=== PATIENT | male | born 1975 | race Caucasian/White ===

== ENCOUNTER 2023-09-07 00:38 | Emergency (ER) | payer OTHER, SELFPAY ==
[2023-09-07 00:46] VITALS: BP 141/106
--- NOTE | 2023-09-07 01:53 | ED.GENMED ---
History of Present Illness
General
Chief Complaint: Cough
Source: patient
Exam Limitations: none
Time Seen by Provider: 09/07/23 01:39
Travel History
Have you had any contact with someone who has COVID-19?: No
Do you have any symptoms of coronavirus? Fever > 100 degrees, chills, cough, shortness of breath, sore throat, loss of taste or smell, muscle aches, or headache?: Yes
Symptoms:: cough
History of Present Illness
History of Present Illness:
This is a 47 year old male that comes in with c/o cough. States that he started 2 days ago with a cough. state that he was also wheezing. States that he feels SOB with the coughing. Denies any fever, chills, chest pain, abd pain, nausea,
vomiting, diarrhea, headache, dizziness, urinary burning.
Past History
Past History
ED Past Medical History: Arrthythmia (Atrial fib); Negative IDDM
ED Past Surgical History: Cardiac (Cardiac ablation) and Urological (Vasectomy)
Social History
Tobacco: Smoker
Alcohol: Daily (Vodka 7-10 drinks)
Drug: None
Personal:
Living: with family
Employment: Employed
Family History
Family History: Other (Noncontributory)
Review of Systems
Review of Systems
All Other Systems: ROS reviewed and negative except as documented in HPI and ROS
Constitutional: Reports no symptoms; Denies fever or chills
EENT: Reports no symptoms
Respiratory: Reports cough and trouble breathing
Cardiac: Reports no symptoms; Denies chest pain
ABD/GI: Reports no symptoms; Denies abdominal pain, nausea, vomiting or diarrhea
: Reports no symptoms; Denies dysuria, frequency or urgency
Musculoskeletal: Reports no symptoms
Skin: Reports no symptoms
Neurological: Reports no symptoms; Denies dizzy or headache
Psychiatric: Reports no symptoms
Phy Exam
General Physical Exam
General Presentation: no apparent distress
General age: appears stated age
General Skin: warm and dry
General Habitus: normal
General Mental: alert
General Hydration: appears well hydrated
ENT Exam
ENT Exam: TM's normal, pharynx normal and neck supple
Eye Exam
Eye Exam: EOMI
Cardiovascular Exam
Cardiovascular Exam: regular rate/rhythm, no edema, no murmur and normal peripheral pulses
Pulmonary Exam
Pulmonary Exam: lungs clear, no respiratory distress, no rales, chest non tender, no crackles, no rhonchi, no wheezing and other (occasional dry cough noted)
Gastrointestinal Exam
Gastrointestinal Exam: normal bowel sounds, non tender, soft, no organomegaly, no pulsatile mass and non distended
Musculoskeletal Exam
Musculoskeletal Exam: full ROM and no edema
Skin Exam
Skin Exam: normal color, warm/dry, no rash and no petechia
Psychiatric Exam
Psychiatric Exam: normal mood/affect
Course
Orders/Labs/Results
Orders:
Orders
09/07/23 00:49
CR Chest - 2 Views Urgent
Comment:
Reason For Exam: productive cough, low grade fever
09/07/23 01:52
Ipratropium/Albuterol Sulfate [Duoneb] 3 ml INH R NOW ONE
Prednisone [Deltasone] 50 mg PO NOW STA
09/07/23 01:57
COVID-19 Antigen Urgent
Source: Nasal Swab
Vital Signs
Initial and Last Documented VS:
Initial Vital Signs
Temp Pulse Resp BP Pulse Ox
99.7 F 100 26 141/106 97
09/07/23 00:46 09/07/23 00:46 09/07/23 00:46 09/07/23 00:46 09/07/23 00:46
Last Documented Vital Signs
Temp Pulse Resp BP Pulse Ox
99.7 F 100 26 141/106 97
09/07/23 00:46 09/07/23 00:46 09/07/23 00:46 09/07/23 00:46 09/07/23 00:46
MDM/Problems Addressed
Differential Diagnosis Includes:
Bronchitis, PNA,
MDM/Problems Addressed:
This is a 47 year old male that comes in with c/o coughing. States that this started 2 days ago. states that he was wheezing.
Will give Duo neb and steroids. Chest x-ray.
Back into see patient. Patient states that he is feeling much better. Will give patient a prescription for an albuterol inhaler and steroid. Patient to follow up with the family doctor on Friday for recheck. Increase his water intake to 8-8oz
glasses daily. Return with increased SOB or any other concerns.
Chronic conditions affecting care:
NA
Acute Exacerbation and/or Progression of Chronic Illness:
NA
*Radiology
Radiology exam reviewed: radiology read reviewed (Chest-NO evidence of active cardiopulmonary disease. )
*Pulse Oximetry
Patient hypoxic: no
*EKG
Interpreted by ED Provider?: NA
Rate: EKG- N/A
*Security Software Engineer Interpretation
Rate: Security Software Engineer- N/A
*Critical Care Note
Total Time (30-74mins, 75-104mins- exclusive of procedures): Not Applicable
ED Attending Note
-
Portions of this chart may have been created with voice recognition software.� Occasional wrong word or��sound alike� substitutions may have occurred due to the inherent limitations of voice recognition software.
Discharge Plan
Departure
Patient Disposition: Home (Routine Discharge)
Date of Disposition: 09/07/23
Time of Disposition: 02:32
Patient with high blood pressure during this ER visit?: Yes
Condition: Good
Discharge Problem:
Cough in adult
Instructions: Cough, Adult (DC), BLOOD PRESSURE
Prescriptions:
New
prednisone 20 mg tablet
40 mg PO DAILY Qty: 8 0RF
albuterol sulfate 90 mcg/actuation HFA aerosol inhaler
2 puff inhalation Q4H PRN (Reason: shortness of breath or wheezing) Qty: 6.7 0RF
No Action
tramadol 50 MG tablet
50 mg PO Q6 PRN (Reason: pain) Qty: 14 0RF
ibuprofen 600 MG tablet
600 mg PO Q6H Qty: 30 0RF
Referrals:
Real Villanueva MD [Family Provider] - Follow up in 2-3 days
Activity Restrictions/Additional Instructions:
As discussed, your Chest x-ray was normal. This may be a viral syndrome. Please increase your water intake to 8-8oz glasses daily. You have had a prescription for a steroid and an albuterol inhaler sent to your Pharmacy. You have also been given
your first dose of steroid here. Please take this tomorrow night. Follow up with the family doctor for recheck. IF YOU HAVE INCREASED SHORTNESS OF BREATH, CHEST PAIN, OR YOU HAVE ANY OTHER CONCERNS PLEASE RETURN TO THE EMERGENCY ROOM.
Interventions
Interventions:
*Risk Screen - Suicide Last Done: 09/07/23 00:46
*General Assessment Last Done: 09/07/23 00:46
*Neglect/Abuse Screening Last Done: 09/07/23 00:46
Discharge Date and Time
Print Language: LATVIAN
[2023-09-07] MEDS: DUONEB 3 ML INH (02:00)
[2023-09-07] MEDS: DELTASONE 50 MG PO (02:00)
[2023-09-07 02:35] VITALS: BP 137/81
[2023-09-07 02:51] LABS: COVID-19 Antigen Negative (Negative)
== END 2023-09-07 02:41 | disposition home or self-care (01) ==
LOC: EMR 00:38
PROVIDERS: Clinical Nurse Specialist Family Health; EMERGENCY PHYSICIAN Emergency Medicine; FAMILY PHYSICIAN Family Medicine
DX: R05.9 Cough, unspecified (principal); R06.02 Shortness of breath; Z11.52 Encounter for screening for COVID-19; R03.0 Elevated blood-pressure reading, without diagnosis of hypertension; I48.91 Unspecified atrial fibrillation; F17.200 Nicotine dependence, unspecified, uncomplicated
CPT/HCPCS: 99283; 94640; 71046; 87811